=== PATIENT | female | born 1985 | race Caucasian/White ===

== ENCOUNTER 2017-06-25 20:53 | Inpatient (IN) ==
[2017-06-25] MEDS: LACTATED RINGERS 1,000 ML IV SCH (21:25)
[2017-06-25] MEDS ORDERED: BUTORPHANOL 2 MG/ML VIAL IV PRN (21:25)
[2017-06-25] MEDS ORDERED: OXYTOCIN/LR 20 UNIT/1,000 ML BAG IV SCH (21:30)
[2017-06-25 22:02] LABS: Basophils % 0.3 % (0.0-0.8); Eosinophils # 0.1 10*3/uL (0.0-0.87); Eosinophils % 0.9 % (0.00-10.9); Hematocrit 28.5 VOL% (35.7-47.0); Hemoglobin 9.4 GM/DL (12.0-16.0); Immature Granulocytes % 2.6 %; Immature Granulocytes Absolute 0.28 #; Lymphocytes # 2.6 10*3/uL (1.4-4.0); Lymphocytes % 23.7 % (21.3-54.2); Mean Corpuscular Hemoglobin 28 PG (27-34); Mean Corpuscular Volume 85.6 FL (87-102); Mean Platelet Volume 10.3 FL (9.6-12.0); Monocytes # 1.1 10*3/uL (0.11-0.8); Monocytes % 10.4 % (1.7-12.7); Neutrophils # 6.8 10*3/uL (1.4-7.4); Neutrophils % 62.1 % (38.7-73.9); Platelet Count 235 T/CUMM (130-400); Red Blood Count 3.33 MC/CUMM (3.8-5.5); Red Cell Distribution Width 12.1 % (9.3-17.3); White Blood Count 10.9 T/CUMM (4-12)
[2017-06-25 22:22] LABS: Alanine Aminotransferase 12 U/L (13-56); Albumin 2.6 G/DL (3.4-5.0); Alkaline Phosphatase 130 U/L (45-117); Aspartate Amino Transferase 15 U/L (0-37); Bilirubin,Total < 0.39 MG/DL (0.2-1.0); Blood Urea Nitrogen 12 MG/DL (7-18); Calcium 8.5 MG/DL (8.5-10.1); Glucose 52 MG/DL (74-106); Osmolality,Calculated 273.5 MOS/KG (273-304); Sodium 139 MMOL/L (136-145)
[2017-06-26] MEDS: LACTATED RINGERS 1,000 ML IV SCH ×3 (02:41→23:40)
--- NOTE | 2017-06-26 08:23 | OB/GYN History & Physical ---
History of Present Illness Chief complaint: 37+3 insulin-dependent diabetes with diminish insulin requirement History of present illness: Ms. Gannon is a 31 year old female 1 para 0 at 37+3 weeks estimated gestational age with insulin-dependent diabetes mellitus. She has had some decreasing insulin requirements. She is seen in conjunction with Dr. Spencer Rey perinatology in [place] who states the patient should be delivered between 36 and 38 weeks but no later than 38 weeks. She received steroids at 36+6 and then 24 hours later. Presentation is vertex and ultrasound estimated weight is 6 lbs. 14 oz. He is constantly admitted for Cytotec induction Home Medications Medication Instructions Recorded Confirmed Type Insulin Lispro [HumaLOG] See Protocol SUBCUT DIRECTED 06/20/15 06/26/17 History Escitalopram [Lexapro] 10 mg PO DAILY #30 tablet 06/23/15 06/26/17 Rx Metoprolol Succinate Xl [Toprol Xl] 12.5 mg PO DAILY #30 tablet 06/23/15 Rx Allergies Allergy/AdvReac Type Severity Reaction Status Date / Time No Known Allergies Allergy Verified 05/26/17 13:34 12 point system: reviewed and no additional remarkable complaints except as stated Medical,Surgical,& Family Hx - Medical History Cardio: History of: Cardiovascular Problems (FAST HEART RATE TAKES TOPROL XL 12.5MG DAILY) Psychological: History of: Anxiety Disorders (panic attacks) Endocrine: History of: Diabetes Mellitus (IDDM) (insulin pump) Musculoskeletal: No history of: Amputation - Surgical History Cardiac Surgeries: Patient Denies: Cardiac Catheterization Thoracic Surgeries: Patient denies;: Organ Transplant, Lobectomy Neurologic Surgeries: Patient denies: Neurologic Surgery HEENT Surgeries: Patient denies: Thyroid Surgery, Tonsilectomy & Adenoidectomy Reproductive Surgeries: Patient denies;: Genitourinary Surgery, Gynecologic Surgery - Family History Family History: Reports;: Family Diabetes, Family Heart Disease, Family Hypertension Denies;: Family Anesthesia Reaction, Family Hematology, Family Psychiatric Problems, Family Stroke, Additional Family History - Social History Smoking Status: Never smoker Frequency of Alcohol Use: None Type of Drug Use: None Exam IT ARCHITECTURE CONSULTANT - Constitutional Vitals: Vital Signs Temp Pulse Resp BP 06/26/17 04:00 97.2 F L 93 H 18 144/67 06/26/17 00:00 98.0 F 86 18 136/84 General appearance: normal weight, no acute distress - Head Head exam: Present: normal inspection, normocephalic, atraumatic - Eye Eye exam: Present: EOMI - Neck Neck exam: Present: normal inspection - Respiratory Respiratory exam: Present: clear to auscultation bilaterally - Breast Breasts: as per HPI Menstruation: as per HPI - Cardiovascular Cardiovascular exam: Present: regular rate and rhythm - GI/Abdominal GI/Abdominal exam: Present: normal bowel sounds - Extremities Exam Extremities exam: Present: normal inspection, normal capillary refill - Back Exam Back exam: Present: normal inspection - Neurological Exam Neurological exam: Present: alert, oriented X3 - Psychiatric Psychiatric exam: Present: normal affect - Skin Skin exam: Present: normal color, warm Assessment and Plan (1) with 37 or more completed weeks gestation Status: Acute Current Visit: Yes (2) Insulin dependent diabetes mellitus Status: Acute Current Visit: Yes (3) Diminished insulin requirements Status: Acute Current Visit: Yes Results - Labs CBC & BMP: 06/25/17 21:48 06/25/17 21:48
[2017-06-26] MEDS ORDERED: GLUCAGON 1 MG VIAL IM PRN (16:10)
[2017-06-26] MEDS ORDERED: DEXTROSE 50% 25 GM/50 ML VIAL IV PRN (16:10)
--- NOTE | 2017-06-27 07:20 | OB/GYN Progress Note ---
Assessment and Plan (1) with 37 or more completed weeks gestation Status: Acute Current Visit: Yes (2) Insulin dependent diabetes mellitus Status: Acute Current Visit: Yes (3) Diminished insulin requirements Status: Acute Current Visit: Yes HIGH SCHOOL GUIDANCE COUNSELOR - PN: Subj Interval history: Patient received sequential Cytotec yesterday for 12 hours and had some improvement in her cervix. She was allowed to eat and rest overnight and Cytotec was continued again at 12 AM. She is currently 2 cm dilated. She will receive another dose of Cytotec at 8 AM and will switch to mag once her cervix is more favorable Exam HIGH SCHOOL GUIDANCE COUNSELOR - Constitutional Vitals: Vital Signs Temp Pulse Resp BP Pulse Ox 06/27/17 04:00 97.6 F 99 H 19 124/65 06/27/17 00:00 97.8 F 90 18 139/81 06/26/17 19:30 97.3 F L 93 H 19 118/68 98 06/26/17 16:00 97.8 F 88 19 157/75 06/26/17 12:00 97.9 F 89 18 119/73 06/26/17 08:00 97.5 F L 98 H 20 125/71 Results - Labs CBC & BMP: 06/25/17 21:48 06/25/17 21:48
[2017-06-27] MEDS: LACTATED RINGERS 1,000 ML IV SCH (10:25)
[2017-06-27] MEDS ORDERED: OXYTOCIN/LR 0 UNIT/0 ML BAG IV ONE (17:37)
[2017-06-27] MEDS ORDERED: LIDOCAINE 1% 50 ML VIAL ONE (17:38)
[2017-06-28] MEDS ORDERED: OXYTOCIN/LR 20 UNIT/1,000 ML BAG IV ONE ×2 (09:29→20:38)
[2017-06-28] MEDS: OXYTOCIN/LR 20 UNIT/1,000 ML BAG IV SCH (09:35)
[2017-06-28] MEDS ORDERED: MEPERIDINE 50 MG/1 ML VIAL IV PRN (12:00)
[2017-06-28] MEDS ORDERED: MEPERIDINE 50 MG/1 ML VIAL ONE ×2 (12:29→18:07)
[2017-06-28] MEDS: ONDANSETRON 4 MG/2 ML VIAL IV PRN ×2 (12:30→17:22)
[2017-06-28] MEDS ORDERED: FAMOTIDINE 20 MG/2 ML VIAL IV ONE (14:06)
[2017-06-28] MEDS ORDERED: CITRIC ACID/SODIUM CITRATE 30 ML UDCUP PO ONE (14:06)
[2017-06-28] MEDS: LACTATED RINGERS 1,000 ML IV SCH (14:26)
[2017-06-28] MEDS ORDERED: fentaNYL 2 MCG/ROPIV 0.2% EPID 150 ML EPIDURAL ONE (14:43)
[2017-06-28 14:46] LABS: Basophils % 0.2 % (0.0-0.8); Eosinophils % 0.1 % (0.00-10.9); Hematocrit 32.1 VOL% (35.7-47.0); Hemoglobin 10.7 GM/DL (12.0-16.0); Immature Granulocytes % 0.9 %; Lymphocytes # 1.1 10*3/uL (1.4-4.0); Lymphocytes % 5.3 % (21.3-54.2); Mean Corpuscular HGB Conc 33.3 GM/DL (32-36); Mean Corpuscular Hemoglobin 29 PG (27-34); Mean Corpuscular Volume 85.4 FL (87-102); Mean Platelet Volume 10.5 FL (9.6-12.0); Monocytes # 1.1 10*3/uL (0.11-0.8); Monocytes % 5.3 % (1.7-12.7); Neutrophils # 18.7 10*3/uL (1.4-7.4); Neutrophils % 88.2 % (38.7-73.9); Platelet Count 208 T/CUMM (130-400); Red Blood Count 3.76 MC/CUMM (3.8-5.5); Red Cell Distribution Width 12.7 % (9.3-17.3); White Blood Count 21.2 T/CUMM (4-12)
[2017-06-28 15:12] LABS: Lymphocytes 4 % (20-55); Platelet Estimate Adequate; Poikilocytosis 1+; Segmented Neutrophils 92 % (50-85); Total Cells Counted 100
[2017-06-28 15:13] LABS: Burr Cells Few; Ovalocytes Few; Polychromasia Slight
[2017-06-28] MEDS ORDERED: LIDOCAINE 1% 50 ML VIAL ONE (18:07)
[2017-06-28] MEDS ORDERED: ACETAMINOPHEN 325 MG TABLET PO PRN (20:38)
[2017-06-28] MEDS ORDERED: BENZOCAINE 20%/MENTHOL 0.5% SPRAY 56 GM CAN TOP PRN (20:38)
[2017-06-28] MEDS ORDERED: WITCH HAZEL PADS 100/JAR TOP PRN (20:38)
[2017-06-28] MEDS ORDERED: HYDROCORTISONE 2.5% RECTAL CREAM 30 GM TUBE TOP PRN (20:38)
[2017-06-28] MEDS ORDERED: DIPH/TET/ACEL PERT BOOSTER VACCINE 0.5 ML VIAL IM ONE (20:38)
[2017-06-28] MEDS ORDERED: LANOLIN 50% CREAM 0.3 OZ TUBE TOP PRN (20:38)
[2017-06-28] MEDS ORDERED: ONDANSETRON 4 MG/2 ML VIAL IV PRN (20:38)
[2017-06-28] MEDS ORDERED: MEASLES/MUMPS/RUBELLA VACCINE 0.5 ML VIAL SUBCUT ONE (20:38)
[2017-06-28] MEDS ORDERED: RHO(D) IMMUNE GLOBULIN 300 MCG SYRINGE IM ONE (20:38)
[2017-06-28] MEDS ORDERED: BISACODYL 10 MG SUPP RECTAL PRN (20:38)
--- NOTE | 2017-06-28 20:38 | OB/GYN Progress Note ---
Assessment and Plan (1) with 37 or more completed weeks gestation Status: Acute Current Visit: Yes (2) Insulin dependent diabetes mellitus Status: Acute Current Visit: Yes (3) Diminished insulin requirements Status: Acute Current Visit: Yes FUNERAL PRE ARRANGEMENT SPECIALIST - PN: Subj Interval history: This Dr. Jama dictating vaginal delivery And in LDR environment under sterile conditions, the patient progressed to completely dilated. She was allowed to push and under [epidural] anesthesia had a outlet vacuum delivery of a live born female unweighed Apgars pending cord pH pending over a [second-degree midline episiotomy]. Indication for outlet vacuum was poor maternal expulsive effort and persistent stress at +4 station. The bladder was re-emptied prior to applying the flat Kiwi presentation was occiput anterior was 0 rotation. Gentle downward force was applied along the pelvic curve the patient was allowed to push. There is a nuchal cord 2 which was reduced on the perineum the 's nose and oropharynx were bulb and DeLee suctioned, and the had spontaneous cry after delivery. The cord was doubly clamped and cut and the was handed over to the pediatric team for care. Cord blood was obtained the placenta delivered spontaneously intact and IV Pitocin was done. There were no cervical tears. There were no periurethral tears. Estimated blood loss was 250 mL. There were no complications. The bladder was emptied using a catheter prior to delivery. All sponge needle and instrument counts were correct -3 at the end of the delivery. The infant was taken to nursery in stable condition Exam FUNERAL PRE ARRANGEMENT SPECIALIST - Constitutional Vitals: Vital Signs Temp Pulse Resp BP 06/28/17 16:00 97.2 F L 92 H 19 134/80 06/28/17 12:00 96.6 F L 76 18 137/70 06/28/17 08:00 97.1 F L 85 20 126/83 06/28/17 04:00 97.0 F L 68 18 116/58 06/28/17 00:00 97.6 F 85 18 127/78 Results - Labs CBC & BMP: 06/28/17 14:38 06/25/17 21:48
[2017-06-28] MEDS ORDERED: miSOPROStol 200 MCG TABLET ONE (20:40)
[2017-06-28 20:49] LABS: Cord Arterial Blood HCO3 23.7 MMOL/L
[2017-06-28] MEDS ORDERED: miSOPROStol 200 MCG TABLET RECTAL ONE (20:50)
[2017-06-28 20:51] LABS: Cord Venous Blood HCO3 19.2 MMOL/L; Cord Venous Blood PCO2 40.2 MMHG; Cord Venous Blood PO2 19.1 MMHG
[2017-06-28] MEDS: DOCUSATE SODIUM 100 MG CAPSULE PO SCH (22:08)
[2017-06-28] MEDS ORDERED: ACETAMINOPHEN/CODEINE 300-30 MG TABLET ONE (23:49)
[2017-06-29] MEDS: INSULIN LISPRO 100 UNIT/ML SUBCUT SCH (00:01)
[2017-06-29] MEDS: ACETAMINOPHEN/CODEINE 300-30 MG TABLET PO PRN ×2 (00:01→04:11)
[2017-06-29] MEDS: ONDANSETRON 4 MG/2 ML VIAL IV PRN (00:28)
[2017-06-29 04:40] LABS: Basophils % 0.1 % (0.0-0.8); Hematocrit 20.8 VOL% (35.7-47.0); Hemoglobin 6.8 GM/DL (12.0-16.0); Immature Granulocytes % 1.2 %; Immature Granulocytes Absolute 0.25 #; Lymphocytes # 1.6 10*3/uL (1.4-4.0); Lymphocytes % 7.5 % (21.3-54.2); Mean Corpuscular HGB Conc 32.7 GM/DL (32-36); Mean Corpuscular Hemoglobin 28 PG (27-34); Mean Corpuscular Volume 85.6 FL (87-102); Mean Platelet Volume 10.7 FL (9.6-12.0); Monocytes # 1.8 10*3/uL (0.11-0.8); Monocytes % 8.6 % (1.7-12.7); Neutrophils # 17.5 10*3/uL (1.4-7.4); Neutrophils % 82.6 % (38.7-73.9); Platelet Count 186 T/CUMM (130-400); Red Blood Count 2.43 MC/CUMM (3.8-5.5); Red Cell Distribution Width 12.9 % (9.3-17.3); White Blood Count 21.2 T/CUMM (4-12)
[2017-06-29 05:29] LABS: Band Neutrophils 2 % (0-10); Lymphocytes 8 % (20-55); Segmented Neutrophils 83 % (50-85); Spherocytes 1+; Total Cells Counted 100
[2017-06-29 05:30] LABS: Platelet Estimate Normal
[2017-06-29] MEDS: FERROUS SULFATE 325 MG TABLET PO SCH ×2 (08:09→22:20)
[2017-06-29] MEDS: DOCUSATE SODIUM 100 MG CAPSULE PO SCH ×2 (08:09→22:20)
[2017-06-29] MEDS: oxyCODONE/ACETAMINOPHEN 5-325 MG TABLET PO PRN ×3 (08:10→22:20)
[2017-06-29] MEDS: IBUPROFEN 800 MG TABLET PO PRN ×3 (08:13→22:19)
--- NOTE | 2017-06-29 08:38 | Anesthesia Post-Op ---
Anesthesia Post OP - Post Ansesthetic Evaluation Patient seen in post op: Yes Resp: within normal limits CV: within normal limits Mental: within normal limits Temp: within normal limits [id number]: within normal limits Nausea and Vomiting: within normal limits Pain: within normal limits
--- NOTE | 2017-06-29 10:49 | OB/GYN Progress Note ---
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 REP - PN: Subj Interval history: Patient is doing well she is eating ambulating and voiding She is afebrile and her vital signs are stable Her fundus is firm and contracted She has decreased lochia Assessment #1 day #1 doing well Plan continue present management with expected DC tomorrow Exam HOME DEPOT REP - Constitutional Vitals: Vital Signs Temp Pulse Pulse Resp BP Pulse Ox 06/29/17 08:00 97.2 F L 106 H 18 106/65 95 06/29/17 07:15 16 06/29/17 06:00 16 06/29/17 05:11 16 06/29/17 04:00 97.9 F 100 H 16 118/60 97 06/29/17 03:13 16 06/29/17 02:25 97.8 F 115 H 16 136/69 98 06/29/17 02:00 16 06/29/17 01:25 98.5 F 96 H 20 137/71 97 06/29/17 00:25 98.6 F 96 H 20 122/79 98 06/28/17 23:55 98.8 F 92 H 20 129/73 99 06/28/17 23:25 98.2 F 99 H 18 139/73 99 06/28/17 20:00 97.1 F L 94 H 22 136/70 06/28/17 16:00 97.2 F L 92 H 19 134/80 06/28/17 12:00 96.6 F L 76 18 137/70 Results - Labs CBC & BMP: 06/29/17 03:30 06/25/17 21:48
[2017-06-29] MEDS: METOPROLOL SUCCINATE XL 25 MG TABLET PO SCH (22:07)
[2017-06-29] MEDS: ESCITALOPRAM 10 MG TABLET PO SCH (22:07)
[2017-06-30 06:23] LABS: Hematocrit 18.8 VOL% (35.7-47.0)
[2017-06-30 06:32] LABS: Hemoglobin 6.2 GM/DL (12.0-16.0)
--- NOTE | 2017-06-30 08:20 | OB/GYN Progress Note ---
Assessment and Plan (1) with 37 or more completed weeks gestation Status: Acute Current Visit: Yes (2) Insulin dependent diabetes mellitus Status: Acute Current Visit: Yes (3) Diminished insulin requirements Status: Acute Current Visit: Yes LEATHER FLESHER - PN: Subj Interval history: This day #2 Patient is doing well. She is asymptomatic she has no presyncope. She is tolerating her diet She is afebrile her vital signs are stable Fundus firm and contracted She has diminished lochia Her repeat H&H is 6 and 18 Assessment #1 day #2 anemia secondary to blood loss. #2 insulin- dependent diabetes mellitus Plan continue present management with iron 3 times a day with observation and probable DC tomorrow Exam LEATHER FLESHER - Constitutional Vitals: Vital Signs Temp Pulse Pulse Resp BP Pulse Ox 06/30/17 07:58 96.8 F L 101 H 18 131/76 98 06/30/17 07:00 16 06/30/17 04:03 98.3 F 83 16 124/71 100 06/30/17 03:00 16 06/30/17 02:00 16 06/30/17 01:00 16 06/30/17 00:00 97.8 F 101 H 16 118/70 98 06/29/17 23:20 16 06/29/17 20:00 97.5 F L 102 H 20 125/72 100 06/29/17 15:45 97.2 F L 102 H 18 119/61 99 06/29/17 12:00 97.2 F L 102 H 18 119/61 99 Results - Labs CBC & BMP: 06/30/17 06:05 06/25/17 21:48
[2017-06-30] MEDS: DOCUSATE SODIUM 100 MG CAPSULE PO SCH ×2 (08:40→20:50)
[2017-06-30] MEDS: FERROUS SULFATE 325 MG TABLET PO SCH ×4 (08:40→20:51)
[2017-06-30] MEDS: IBUPROFEN 800 MG TABLET PO PRN ×2 (08:43→19:58)
[2017-06-30] MEDS: oxyCODONE/ACETAMINOPHEN 5-325 MG TABLET PO PRN ×3 (08:44→20:02)
[2017-06-30] MEDS: METOPROLOL SUCCINATE XL 25 MG TABLET PO SCH (08:46)
[2017-06-30] MEDS: ESCITALOPRAM 10 MG TABLET PO SCH (08:46)
[2017-06-30] MEDS: OXYTOCIN/LR 20 UNIT/1,000 ML BAG IV SCH (22:17)
[2017-06-30] MEDS: INSULIN LISPRO 100 UNIT/ML SUBCUT SCH (22:17)
[2017-07-01] MEDS: IBUPROFEN 800 MG TABLET PO PRN ×2 (07:06→12:09)
[2017-07-01] MEDS: oxyCODONE/ACETAMINOPHEN 5-325 MG TABLET PO PRN (07:06)
[2017-07-01 07:31] VITALS: BP 139/81
[2017-07-01] MEDS: ESCITALOPRAM 10 MG TABLET PO SCH (09:34)
[2017-07-01] MEDS: FERROUS SULFATE 325 MG TABLET PO SCH (09:34)
[2017-07-01] MEDS: DOCUSATE SODIUM 100 MG CAPSULE PO SCH (09:34)
[2017-07-01] MEDS: METOPROLOL SUCCINATE XL 25 MG TABLET PO SCH (09:35)
--- NOTE | 2017-07-01 11:06 | Discharge Summary ---
Hospital Course - Hospital Course Hospital Course: patient did well. She did have significant drop in her blood count with a hemoglobin of 6 however she was asymptomatic. She is placed on iron 3 times a day. Follow-up blood count showed no continued drop. Patient was consequently discharged close follow-up on iron 3 times a day Diagnosis - Discharge Diagnosis (1) with 37 or more completed weeks gestation Status: Acute (2) Insulin dependent diabetes mellitus Status: Acute (3) Diminished insulin requirements Status: Acute Specialty Discharge - Follow Up or Referrals Discharge Plan - Discharge Data Disposition: Disch To Home/Self Care Condition at Discharge: Stable Discharge Diet: diabetic diet Activity: increase activity as tolerated, other (Pelvic rest) Hygiene: may shower Weight Bearing at Discharge: full weight bearing Driving: no restrictions Contact your physician if you experience:: fever over 101, Difficulty voiding, Redness or swelling, Nausea/Vomiting, Shortness of breath, Bleeding, pain uncontrolled by pain medications - Discharge Medications New Ferrous Sulfate Tab [Feosol Original Tab] 325 mg PO TID #90 tablet HYDROcodone/ACETAMIN 5-325 [Baxter 5-325] 1 tablet PO Q4H PRN #10 tablet PRN Reason: Abdominal Pain Ibuprofen Tab [Motrin Tab] 800 mg PO Q6H PRN tablet PRN Reason: Pain Moderate (4-7) Witch Corazon Pads [Tucks Pads] 1 applic TOP Q4H PRN applic PRN Reason: Hemorrhoids Insulin Lispro [HumaLOG] See Protocol SUBCUT DIRECTED unit Continue Escitalopram [Lexapro] 10 mg PO DAILY #30 tablet Metoprolol Succinate Xl [Toprol Xl] 12.5 mg PO DAILY #30 tablet Discontinued Insulin Lispro [HumaLOG] See Protocol SUBCUT DIRECTED - Follow Up or Referral Follow Up: Quan Jama MD [Physician] - 2 Weeks - Forms/Instructions Instructions: Perineal Care (DC), Vaginal Delivery (DC), Bleeding (DC) Exam - Constitutional Vitals: Period Temp Pulse Resp BP Sys/Vaughan Pulse Ox Last 24 Hr 96.2 F-97.9 F 91-103 18-20 122-139/73-81 97-100 DS: Provider Date of admission: 06/25/17 20:53 Primary care physician: Reid Bernard MD Attending physician on admission: Maria Gamez Consults: 06/25/17 21:25 Consult to Anesthesiology [CONS] Routine Consulting Provider: Reason for Anesthesiology: Epidural Consult Comment: Epidural for pain managment 06/26/17 13:46 Consult to Dietitian [CONS] Routine Reason for Dietitian: Dietary Consult 06/28/17 20:38 Consult to Underwater Photographer [CONS] Routine Consult Underwater Photographer: Breast Feeding Discharging clinician: Maria Gamez Expected date of discharge: 07/01/17
== END 2017-07-01 16:05 | disposition home or self-care (01) | DRG 774 ==
LOC: EDSTATUS 20:53 → N.LD 20:53 → N.LDOUT 20:53 → N.LD 20:54 → N.OB 06-28 23:42
PROVIDERS: ADMIT Specialist; ATTEND Specialist